=== PATIENT | male | born 1970 | race Caucasian/White ===

== ENCOUNTER 2017-10-03 07:14 | Emergency (ER) | payer OTHER ==
[~2017-10-03] VITALS: Ht 162.6 cm; Wt 113.4 kg
[2017-10-03] MEDS ORDERED: IBUPROFEN600 MG ORAL (07:26)
[2017-10-03] MEDS ORDERED: Ketorolac 30mg Inj IM ONE (07:45)
[2017-10-03] MEDS ORDERED: Methocarbamol 750mg tab ORAL ONE (07:45)
[2017-10-03] MEDS ORDERED: NORCO 5-325 TA1 EACH ORAL (08:09)
[2017-10-03] MEDS ORDERED: LIDODERM700 M1 TOPIC (08:09)
[2017-10-03 09:00] VITALS: BP 138/79
--- NOTE | 2017-10-03 11:55 | Diagnostic Imaging Report ---
Indication: Pain Findings: 3 views of the right shoulder were obtained. No acute fractures, malalignment, erosions or periostitis are identified. Soft tissues are unremarkable. Impression: Negative for acute injury
--- NOTE | 2017-10-03 15:32 | Emergency Room Report ---
History of Present Illness General Chief Complaint: Upper Extremity Injury Source: Patient Present Illness HPI 47-year-old male no significant past medical history, presenting with right shoulder pain for 4 days. This started after he picked up his knees. He went to an emergency room, they performed x-rays, was diagnosed with tendinitis. States he continues to have pain. Limited range of motion. Patient is with a sling. States he had a rotator cuff of his left shoulder that required surgery in the past Allergies: Coded Allergies: No Known Allergies (Unverified , 10/03/17) Patient History Past Medical History: see triage record Past Surgical History: none Pertinent Family History: none Reviewed Nursing Documentation: PMH: Agreed, PSxH: Agreed Nursing Documentation-PMH Past Medical History: No Stated History Review of Systems All Other Systems: negative except mentioned in HPI Physical Exam Vital Signs Date Time Temp Pulse Resp B/P (MAP) Pulse Ox O2 Delivery O2 Flow Rate FiO2 10/03/17 07:18 98.1 84 16 136/92 96 Room Air Sp02 EP Interpretation: reviewed, normal General Appearance: normal inspection, well appearing, no apparent distress, alert, GCS 15, non-toxic Head: normocephalic, atraumatic Eyes: bilateral eye normal inspection, bilateral eye PERRL, bilateral eye EOMI ENT: normal ENT inspection, normal pharynx, normal voice, moist mucus membranes Neck: normal inspection, full range of motion, supple Respiratory: normal inspection, lungs clear, normal breath sounds, no respiratory distress, no retraction, no wheezing, speaking full sentences, chest symmetrical Cardiovascular #1: normal inspection, regular rate, rhythm, no edema, normal capillary refill Cardiovascular #2: 2+ radial (R), 2+ radial (L) Gastrointestinal: normal inspection, non tender, soft, non-distended, no guarding Genitourinary: no CVA tenderness Musculoskeletal: other - Right shoulder tender to palpation, no gross bony deformities, limits range of motion secondary to pain Neurologic: normal inspection, alert, oriented x3, responsive, motor strength/ tone normal, sensory intact, normal gait, speech normal Psychiatric: normal inspection, judgement/insight normal, memory normal Skin: normal inspection, normal color, no rash, warm/dry, well hydrated, normal turgor Medical Decision Making Diagnostic Impression: Primary Impression: Right shoulder pain ER Course 47-year-old male with right shoulder pain DDX: Sprain/strain vs. fracture versus contusion versus rotator cuff injury Plan: Pain control XR ER course: Patient reports improvement of pain X-ray no abnormalities Disposition: Patient is to be discharged home with a prescription of Lidoderm and [place] Patient instructed follow up with orthopedic surgery in 1 week. Patient educated to rest, ice, and elevate extremity and to avoid vigorous activity. Strict precautions discussed with patient on when to return to the emergency room including increased redness or swelling joints, increased pain/swelling of extremity, fever or chills, which could indicate severe illness. Patient is to follow up with their primary care doctor within 5 days. Patient also instructed to follow up with an orthopedic doctor if continuing to have mild/moderate pain as he may need further outpatient imaging. Patient agrees with plan. Please note that this Emergency Department Report was dictated using [employer] foreign technology software, occasionally this can lead to erroneous entry secondary to interpretation by the dictation equipment. Xray ordered: Right shoulder Complete Indication: Pain EP Interpretation: Yes Interpretation: No dislocation, no soft tissue swelling, no fractures Impression: No acute disease Electronically signed by Rahat Walsh MD Last Vital Signs Date Time Temp Pulse Resp B/P (MAP) Pulse Ox O2 Delivery O2 Flow Rate FiO2 10/03/17 09:00 72 16 138/79 97 Room Air 10/03/17 09:00 98.1 Disposition: HOME, SELF-CARE Condition: Stable Scripts Hydrocodone Bit/Acetaminophen 5-325* (NORCO 5-325*) 1 Each Tablet 1 TAB ORAL Q6H Y for For Pain, #10 TAB 0 Refills Prov: Rahat Walsh M.D. 10/03/17 Lidocaine (Lidoderm) 1 Each Adh..patch 1 PATCH TOPIC DAILY, #7 PATCH 0 Refills Patch(es) may remain in place for up to 12 hours in any 24-hour period. Prov: Rahat Walsh M.D. 10/03/17 Patient Instructions: Shoulder Pain, [id number] Additional Instructions: Please followup with an orthopedic surgeon within one week as you may need further imaging such as an MRI Rahat Walsh M.D. Oct 03, 2017 15:32
== END 2017-10-03 09:32 | disposition home or self-care (01) ==
LOC: EMR 07:43
DX: M25.511 Pain in right shoulder (principal)
CPT/HCPCS: 73030; 96372; 99283; J1885